=== PATIENT | male | born 1975 | race African-American/Black ===

== ENCOUNTER 2018-02-18 16:01 | Emergency (ER) | payer OTHER ==
[~2018-02-18] VITALS: Ht 177.8 cm; Wt 93.0 kg
--- NOTE | 2018-02-18 16:36 | Emergency Room Report ---
History of Present Illness General Chief Complaint: Eye Problems Source: Patient Present Illness HPI 43-year-old male patient presents the ER complaining of left eye pain. 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 States he was drilling into a metal and wood wall, states he is not sure what got into his eye. Reports blurry vision. Reports tearing. Reports he cleaned and flushed his eye at the time. Reports it happened a few hours ago. Denies fever, chest pain, shortness of breath. Complaining of FB sensation. Denies wearing contacts or glasses. Allergies: Coded Allergies: No Known Allergies (Unverified , 02/18/18) Patient History Past Medical History: see triage record Reviewed Nursing Documentation: PMH: Agreed; PSxH: Agreed Nursing Documentation-PMH Past Medical History: No Stated History Review of Systems All Other Systems: negative except mentioned in HPI Physical Exam Vital Signs Date Time Temp Pulse Resp B/P (MAP) Pulse Ox O2 Delivery O2 Flow Rate FiO2 02/18/18 16:01 99.0 93 18 146/92 95 Room Air Sp02 EP Interpretation: reviewed, normal General Appearance: well appearing, no apparent distress, alert, GCS 15, non- toxic Head: normocephalic, atraumatic Eyes: left eye Scleral Injection, left eye other - 2-3 mm foreign body located in central corneal axis of left eye; no floor seen uptake, no abrasion, negative Sylvia sign; bilateral eye normal inspection, bilateral eye PERRL ENT: hearing grossly normal, normal pharynx, no angioedema, normal voice, uvula midline, moist mucus membranes Neck: full range of motion Respiratory: lungs clear, normal breath sounds, no rhonchi, no respiratory distress, no accessory muscle use, no wheezing, speaking full sentences Cardiovascular #1: regular rate, rhythm, no edema Musculoskeletal: back normal, digits/nails normal, gait/station normal, normal range of motion, non-tender Neurologic: alert, oriented x3, responsive, motor strength/tone normal, sensory intact Psychiatric: mood/affect normal Skin: no rash Medical Decision Making PA Attestation Dr. Pan is my supervising Physician whom patient management has been discussed with. Diagnostic Impression: Primary Impression: Corneal foreign body ER Course pt. presents to the ED c/o left eye pain and FB sensation. Ddx considered but are not limited to FB in eye, corneal abrasion, corneal ulcer , subconjunctival hemorrhage. Patient has no signs of surrounding cellulitis, no pain with eye movement, does not require imaging at this time. Vital signs: are WNL, pt. is afebrile See nurses note for visual acuity. ER COURSE Patient's left eye was flushed with Mumtaz's lens and 1 L of normal saline. right eye 15mmHg Left eye 20mmHg Following eye flushing, fluorescein stain performed. No fluorescein uptake noted, negative sidel sign. Small 2-3mm FB noted in central axis of cornea. Discuss patient care with Dr. Pan. Need evaluation by bombsight specialist. [employer] Dr. Page was kind enough to consult on this patient. Instructed for patient to take erythromycin ointment drops and followup with him in his office at 1030 AM. Provide patient with contact information for bombsight specialist, advised him to follow-up at scheduled time tomorrow. Follow-up with silk conditioner. Workmen's Compensation paperwork completed. Discussed return to work with bombsight specialist and Workmen's Compensation physician. ER precautions given. DISCHARGE: - Rx provided for erythromycin, place 2 drops in affected eye BID for 7 days - Rx provided for Tylenol No. 3, do not take prior to drinking, driving, operating heavy machinery. At this time pt. is stable for d/c to home. Patient resting comfortably in no acute distress, nontoxic appearing. Will provide printed patient care instructions and any necessary prescriptions. Care plan and follow up instructions have been discussed with the patient prior to discharge Follow-up with physician vice president in 24 hours. Follow-up with primary care provider in 3 -5 days. Take medications as directed. Patient questions asked and answered. ER precautions given, patient instructed to return to ER immediately for any new or worsening of symptoms. - Please note that this Emergency Department Report was dictated using [employer] breeder technology software, occasionally this can lead to erroneous entry secondary to interpretation by the dictation equipment. Last Vital Signs Date Time Temp Pulse Resp B/P (MAP) Pulse Ox O2 Delivery O2 Flow Rate FiO2 02/18/18 16:01 99.0 93 18 146/92 95 Room Air Disposition: HOME, SELF-CARE Condition: Stable Scripts Acetaminophen With Codeine (T#3) (TYLENOL #3 TAB*) Y Tab 1 TAB ORAL Q6HR PRN for For Pain, #10 TAB Prov: Kali Fair 02/18/18 Erythromycin Base (ERYTHROMYCIN*) 3.5 Gm Oint...g. 1 APPLIC LEFT EYE TID, #3.5 GM 0 Refills Prov: Kali Fair 02/18/18 Patient Instructions: Eye Foreign Body, [id number] Additional Instructions: Followup with Dr. Page tomorrow in his office at 10:30AM. Take medications as directed. Patient questions asked and answered. ER precautions given, patient instructed to return to ER immediately for any new or worsening of symptoms. Kali Fair Feb 18, 2018 16:36
[2018-02-18] MEDS ORDERED: Morgan Lens TOPIC ONE (16:45)
[2018-02-18] MEDS ORDERED: Tetracaine 0.5% Opth 4ml Soln LEFT EYE ONE (16:45)
[2018-02-18] MEDS ORDERED: Fluorescein Strips LEFT EYE ONE (16:45)
[2018-02-18] MEDS ORDERED: Tetanus/Diptheria/Pertussis Vaccine 0.5ml Syr IM ONE (16:45)
[2018-02-18 16:51] VITALS: BP 157/84
[2018-02-18 19:30] VITALS: BP 146/76
[2018-02-18 21:15] VITALS: BP 139/78
[2018-02-18] MEDS ORDERED: ACETAMINOPHEN-1 EAC1 ORAL (21:26)
[2018-02-18] MEDS ORDERED: ERYTHROMYCIN3.5 GM LEFT EYE (21:26)
[2018-02-18 23:00] VITALS: BP 139/78
== END 2018-02-18 23:00 | disposition home or self-care (01) ==
LOC: EMR 18:07
DX: T15.02XA Foreign body in cornea, left eye, initial encounter (principal); W45.8XXA Other foreign body or object entering through skin, initial encounter; Y92.69 Other specified industrial and construction area as the place of occurrence of the external cause; Z23 Encounter for immunization
CPT/HCPCS: 90471; 90715; 99283